=== PATIENT | female | born 1970 | race Caucasian/White ===

== ENCOUNTER 2018-05-14 15:56 | Emergency (ER) | payer MEDICAID ==
[~2018-05-14] VITALS: Ht 147.3 cm; Wt 63.6 kg
[2018-05-14 16:22] VITALS: BP 161/96
--- NOTE | 2018-05-14 17:09 | NUR ---
PT AMBULATED TO BED 9
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
[2018-05-14] MEDS ORDERED: TETRACAINE HCL/PF 0.5% OPTH 4 ML BTL ONE (17:22)
[2018-05-14] MEDS ORDERED: FLUORESCEIN OPTH STRIP 0.6 MG ONE (17:23)
--- NOTE | 2018-05-14 19:06 | NUR ---
REPORT RECIEVED FROM STAN FLORES. ASSUMED CARE OF PT.
--- NOTE | 2018-05-14 19:06 | NUR ---
REPORT GIVEN TO STAN HECK.
[2018-05-14] MEDS: IBUPROFEN 800 MG TAB PO ONE (19:15)
--- NOTE | 2018-05-14 19:54 | NUR ---
Patient discharged with v/s stable. Written and verbal after care instructions given and explained. Patient alert, oriented and verbalized understanding of instructions. Ambulatory with steady gait. All questions addressed prior to discharge. ID band removed. Patient advised to follow up with PMD. Rx of MOTRIN, GENTAMYCIN GTT given. Patient educated on indication of medication including possible reaction and side effects. Opportunity to ask questions provided and answered.
[2018-05-14 19:56] VITALS: BP 154/82
== END 2018-05-14 19:54 | disposition home or self-care (01) ==
LOC: MED 15:56
DX: S05.02XA Injury of conjunctiva and corneal abrasion without foreign body, left eye, initial encounter (principal); E11.9 Type 2 diabetes mellitus without complications; W22.8XXA Striking against or struck by other objects, initial encounter; Y93.89 Activity, other specified; Y92.89 Other specified places as the place of occurrence of the external cause; Y99.8 Other external cause status
CPT/HCPCS: 99283

== ENCOUNTER 2019-01-28 19:47 | Emergency (ER) | payer MEDICAID ==
[~2019-01-28] VITALS: Ht 154.9 cm; Wt 74.4 kg
[2019-01-28 19:54] VITALS: BP 126/64
--- NOTE | 2019-01-28 19:54 | NUR ---
TO BED # 12 AMBULATORY
--- NOTE | 2019-01-28 20:09 | NUR ---
C/O ITCHINESS TO RIGHT SHOULDER/MEDIAL BACK X 3 WEEKS
[2019-01-28] MEDS ORDERED: diphenhydrAMINE 50 MG CAP PO ONE (20:20)
[2019-01-28] MEDS ORDERED: FAMOTIDINE 20 MG TAB PO ONE (20:20)
[2019-01-28 21:12] VITALS: BP 126/64
--- NOTE | 2019-01-28 21:13 | NUR ---
Patient discharged with v/s stable. Written and verbal after care instructions given and explained. Patient alert, oriented and verbalized understanding of instructions. Ambulatory with steady gait. All questions addressed prior to discharge. ID band removed. Patient advised to follow up with PMD. Rx of TRIAMCINOLONE CREAM, BENADRYL, LORATADINE given. Patient educated on indication of medication including possible reaction and side effects. Opportunity to ask questions provided and answered.
== END 2019-01-28 21:13 | disposition home or self-care (01) ==
LOC: MED 19:47
DX: L29.9 Pruritus, unspecified (principal); E11.9 Type 2 diabetes mellitus without complications
CPT/HCPCS: 99283; Q0163

== ENCOUNTER 2019-07-30 19:03 | Emergency (ER) | payer MEDICAID ==
[~2019-07-30] VITALS: Ht 154.9 cm; Wt 73.5 kg
[2019-07-30 19:07] VITALS: BP 134/90
--- NOTE | 2019-07-30 19:10 | NUR ---
TO LOBBY AMBULATORY, A/W BED
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
--- NOTE | 2019-07-30 20:15 | NUR ---
Dr. Dior examining patient.
[2019-07-30] MEDS ORDERED: KETOROLAC 60 MG/2 ML VIAL IM ONE (20:20)
--- NOTE | 2019-07-30 20:36 | NUR ---
MEDICATED WITH 60 MG IM TORADOL FOR 10/10 RIGHT SIDE BODY PAIN. WILL REASSESS IN 30 MINS.
[2019-07-30 20:53] VITALS: BP 128/85
--- NOTE | 2019-07-30 20:53 | NUR ---
Patient discharged with v/s stable. Written and verbal after care instructions given and explained. Patient alert, oriented and verbalized understanding of instructions. Ambulatory with steady gait. All questions addressed prior to discharge. ID band removed. Patient advised to follow up with PMD. Rx of NORCO, MOTRIN given. Patient educated on indication of medication including possible reaction and side effects. Opportunity to ask questions provided and answered.
== END 2019-07-30 20:53 | disposition home or self-care (01) ==
LOC: MED 19:03
DX: S00.11XA Contusion of right eyelid and periocular area, initial encounter (principal); S80.01XA Contusion of right knee, initial encounter; E11.9 Type 2 diabetes mellitus without complications; X58.XXXA Exposure to other specified factors, initial encounter; Y93.89 Activity, other specified; Y92.89 Other specified places as the place of occurrence of the external cause; Y99.8 Other external cause status
CPT/HCPCS: 96372; 99283; J1885

== ENCOUNTER 2019-08-23 17:58 | Emergency (ER) | payer MEDICAID ==
[~2019-08-23] VITALS: Ht 154.9 cm; Wt 68.9 kg
[2019-08-23 18:14] VITALS: BP 145/84
--- NOTE | 2019-08-23 18:26 | NUR ---
patito ma pt as well as
[2019-08-23] MEDS ORDERED: NACL 0.9% 1,000 ML IV ONE (18:30)
[2019-08-23 18:52] LABS: BASOPHILS % (AUTO) 0.4 % (0.0-2.0); EOSINOPHILS # (AUTO) 0.1 K/uL (0-0.4); EOSINOPHILS % (AUTO) 1.8 % (0.0-4.0); HEMATOCRIT 43.5 % (36-48); HEMOGLOBIN 14.6 g/dL (12.0-16.0); LYMPHOCYTES # (AUTO) 1.8 K/uL (2.5-16.5); LYMPHOCYTES % (AUTO) 24.5 % (20.5-51.1); MEAN CORPUSCULAR HEMOGLOBIN 30 pg (27-31); MEAN CORPUSCULAR HGB CONC 34 g/dL (33-37); MEAN CORPUSCULAR VOLUME 89.2 fL (80-94); MONOCYTES # (AUTO) 0.4 K/uL (0.8-1.0); MONOCYTES % (AUTO) 5.8 % (1.7-9.3); NEUTROPHILS # (AUTO) 4.8 K/uL (1.8-7.7); NEUTROPHILS % (AUTO) 67.5 % (42.2-75.2); PLATELET COUNT (AUTO) 232 K/uL (140-450); RED BLOOD CELL COUNT(AUTO) 4.88 MIL/uL (4.20-5.40); RED CELL DISTRIBUTION WIDTH 13.4 % (11.6-13.7); WHITE BLOOD COUNT (AUTO) 7.2 K/uL (4.8-10.8)
--- NOTE | 2019-08-23 18:54 | NUR ---
BIB SELF C/O RIGHT SIDED FACIAL PAIN/DROOPING X1 DAY. YESTERDAY PATIENT WAS AT HOME AND BEGAN FEELING PAIN IN THE BACK OF HER MOUTH WELL FACIAL DROOPINESS. NO NUMBNESS TINGLING REPORTED. PERRLA, 3MM. BILAT FORMULA MAKER STRENGTH 5/5. AOX4. VSS. NO SOB/LABORED BREATHING NOTED. NO ARM DRIFT NOTED. PMH: DM2 NKA
[2019-08-23 19:29] LABS: ALBUMIN 3.8 g/dL (3.4-5.0); ANION GAP 7.9 (8-16); CARBON DIOXIDE 29.8 mmol/L (21-32); CREATININE 0.8 mg/dL (0.6-1.3); POTASSIUM 3.7 mmol/L (3.5-5.1); TOTAL BILIRUBIN 0.3 mg/dL (0.0-1.0)
[2019-08-23 20:26] VITALS: BP 150/85
--- NOTE | 2019-08-23 20:27 | NUR ---
Patient discharged with v/s stable. Written and verbal after care instructions given and explained. Patient alert, oriented and verbalized understanding of instructions. Ambulatory with steady gait. All questions addressed prior to discharge. ID band removed. Patient advised to follow up with PMD. Rx of ACYCLOVIR, MEDROL, PREDNISONE given. Patient educated on indication of medication including possible reaction and side effects. Opportunity to ask questions provided and answered.
== END 2019-08-23 20:27 | disposition home or self-care (01) ==
LOC: MED 17:58
DX: G51.0 Bell's palsy (principal); E11.9 Type 2 diabetes mellitus without complications
CPT/HCPCS: 36415; 80053; 81002; 81025; 82948; 85025; 99283; J7030

== ENCOUNTER 2020-01-30 11:01 | Emergency (ER) | payer MEDICAID ==
[~2020-01-30] VITALS: Ht 147.3 cm; Wt 62.1 kg
[2020-01-30 11:03] VITALS: BP 138/77
--- NOTE | 2020-01-30 11:16 | NUR ---
AMBULATED TO BED 4
--- NOTE | 2020-01-30 11:21 | NUR ---
49 Y/O F C/C HEADACHE X 1 DAY. PER PT TAKEN TYLENOL 800MG THIS MORNING WITH NO RELIEF. PAIN IN FRONTAL AREA, 10/10, SHARP PAIN, NON RADIATING. PER PT FURTHER COMPLAINTS OF BODY ACHES. NEURO ASSESSMENT: CN II,III,IV,V,,VII,VII,XII WNL. NO ASYMMETRY NOTED ON FACE,UPPER/LOWER EXTREMITIES. STRENGTH IN ALL EXTREMITIES 5/5, WNL DORSI/PLANTAR FLEXION. PT NKA. HX DM,HTN. RX METFORMIN, HTN UNABLE TO RECALL. NO NVD. SIDE RAIL X1.
[2020-01-30] MEDS ORDERED: KETOROLAC 60 MG/2 ML VIAL IM ONE (11:30)
[2020-01-30 12:31] VITALS: BP 130/72
--- NOTE | 2020-01-30 12:31 | NUR ---
Patient discharged with v/s stable. Written and verbal after care instructions given and explained. Patient alert, oriented and verbalized understanding of instructions. Ambulatory with steady gait. All questions addressed prior to discharge. ID band removed. Patient advised to follow up with PMD. Rx of MOTRIN,TRAMADOL given. Patient educated on indication of medication including possible reaction and side effects. Opportunity to ask questions provided and answered.
== END 2020-01-30 12:31 | disposition home or self-care (01) ==
LOC: MED 11:01
DX: R51 Headache (principal); I10 Essential (primary) hypertension; E11.9 Type 2 diabetes mellitus without complications
CPT/HCPCS: 96372; 99283; J1885

== ENCOUNTER 2020-06-30 15:43 | Emergency (ER) | payer MEDICAID ==
[~2020-06-30] VITALS: Ht 147.3 cm; Wt 63.6 kg
[2020-06-30 15:57] VITALS: BP 132/99
--- NOTE | 2020-06-30 16:28 | NUR ---
50 Y/O FEMALE COMES FROM HOME, PRESENTS TO ED C/O RIGHT FACE DROOPING AND HEAD ACHE X 3 DAYS. PT STATES SHE HAD SIMILAR SIMPTOMS 8 MONTHS AGO AND RECIVED TREATMENT BUT UNSURE OF DX. DENIES SOB, N,V,D. PT STES SHE TOOK TYLENOL THIS MORNING BUT WAS INEFFECTIVE.FACE IS ASYMETRICAL, RIGHT SIDE FACIAL/SMILE DROOP. PT STES SHE CAN NOT FEEL RIGHT SIDE OF FACE"IT FEELS COMPLETELY NUMB". SYMETRICAL STRENGHTH TO BILAT UPPER AND LOWER EXTREMITIES. NO NEURO DEFFICITS NOTED. PMH: EBE NKDA
[2020-06-30] MEDS ORDERED: NACL 0.9% 1,000 ML IV ONE (16:35)
[2020-06-30 16:59] LABS: BASOPHILS % (AUTO) 0.5 % (0.0-2.0); EOSINOPHILS # (AUTO) 0.1 K/uL (0-0.4); EOSINOPHILS % (AUTO) 1.4 % (0.0-4.0); HEMATOCRIT 42.5 % (36-48); HEMOGLOBIN 14.4 g/dL (12.0-16.0); LYMPHOCYTES # (AUTO) 2.1 K/uL (2.5-16.5); LYMPHOCYTES % (AUTO) 24.2 % (20.5-51.1); MEAN CORPUSCULAR HEMOGLOBIN 29 pg (27-31); MEAN CORPUSCULAR HGB CONC 34 g/dL (33-37); MONOCYTES # (AUTO) 0.6 K/uL (0.8-1.0); MONOCYTES % (AUTO) 6.5 % (1.7-9.3); NEUTROPHILS # (AUTO) 5.9 K/uL (1.8-7.7); NEUTROPHILS % (AUTO) 67.4 % (42.2-75.2); PLATELET COUNT (AUTO) 215 K/uL (140-450); RED BLOOD CELL COUNT(AUTO) 4.89 MIL/uL (4.20-5.40); RED CELL DISTRIBUTION WIDTH 13.6 % (11.6-13.7); WHITE BLOOD COUNT (AUTO) 8.7 K/uL (4.8-10.8)
[2020-06-30 17:18] LABS: ANION GAP 12.3 (8-16); CARBON DIOXIDE 28.6 mmol/L (21-32); CREATININE 0.8 mg/dL (0.6-1.3); POTASSIUM 3.9 mmol/L (3.5-5.1)
[2020-06-30] MEDS ORDERED: INSULIN REGULAR, HUMAN 100 UNIT/ML VIAL IVP ONE (18:10)
--- NOTE | 2020-06-30 18:10 | NUR ---
PT UP TO RESTROOM
--- NOTE | 2020-06-30 18:13 | NUR ---
PT RETURNED FROM RESTROOM, BACK IN BED, POSITIONED FOR COMFORT BED LOCKED IN LOWEST POSITION.
[2020-06-30 18:51] VITALS: BP 147/76
--- NOTE | 2020-06-30 18:52 | NUR ---
Patient discharged with v/s stable. Written and verbal after care instructions given and explained. Patient alert, oriented and verbalized understanding of instructions. Ambulatory with steady gait. All questions addressed prior to discharge. ID band removed. Patient advised to follow up with PMD. Rx of IBUPROFEN, ACYCLOVIR, BION LUBRICANR EYE DROPS given. Patient educated on indication of medication including possible reaction and side effects. Opportunity to ask questions provided and answered.
--- NOTE | 2020-07-01 23:17 | NUR ---
LATE ENTRY- NORMAL SALINE 0.9% DISCONTINUED AT 1755
== END 2020-06-30 18:52 | disposition home or self-care (01) ==
LOC: MED 15:43
DX: G51.0 Bell's palsy (principal); E11.65 Type 2 diabetes mellitus with hyperglycemia; I10 Essential (primary) hypertension
CPT/HCPCS: 36415; 80048; 85025; 96361; 96374; 99283; J1815; J7030

== ENCOUNTER 2020-08-06 12:53 | Emergency (ER) | payer MEDICAID ==
[~2020-08-06] VITALS: Ht 149.9 cm; Wt 62.6 kg
[2020-08-06 13:51] VITALS: BP 146/63
--- NOTE | 2020-08-06 13:55 | NUR ---
PT SENT TO ER LOBBY TO WAIT FOR MSE.
--- NOTE | 2020-08-06 14:00 | NUR ---
50/F presents to ED with complaints of right sided facial numbness, droop since the beginning this year. Pt has had another episode prior to this. Patient has complaints of right sided droop and headache. Pt states she was seen a year ago and was given rx that helped her a lot but last visit she did not improve with what was prescribed to her.
--- NOTE | 2020-08-06 14:13 | NUR ---
EVALUATION BEING PERFORMED BY TRU YAO IN TRIAGE.
[2020-08-06 14:39] VITALS: BP 145/50
--- NOTE | 2020-08-06 14:39 | NUR ---
Patient discharged with v/s stable. Written and verbal after care instructions given and explained. Patient verbalized understanding. Ambulatory with steady gait. All questions addressed prior to discharge. Advised to follow up with PMD.
== END 2020-08-06 14:39 | disposition home or self-care (01) ==
LOC: MED 12:53
DX: G51.0 Bell's palsy (principal); E11.9 Type 2 diabetes mellitus without complications; I10 Essential (primary) hypertension
CPT/HCPCS: 99281

== ENCOUNTER 2021-03-09 20:36 | Emergency (ER) | payer MEDICAID ==
[~2021-03-09] VITALS: Ht 149.9 cm; Wt 64.4 kg
[2021-03-09 20:47] VITALS: BP 141/66
--- NOTE | 2021-03-09 21:25 | NUR ---
PT. IS A 50 Y/O FEMALE THAT CAME INTO ED WITH C/O OF BILATERAL FOOT PAIN. PT. STATES IT STARTED 3 DAYS AGO AND [facility] ASKED TO DESCRIBE PAIN, PT. STATES "FEELS PRICKLY AND TINGLY ON TOES." PT. RATES PAIN 10/10 ON THE PAIN SCALE AT THIS TIME. DENIES N/V/D; SKIN IS PINK/WARM/DRY; AAOX4 WITH EVEN AND STEADY GAIT; HR EVEN AND REGULAR; PT DENIES ANY FEVER, CP, SOB, OR COUGH AT THIS TIME; VSS; PATIENT POSITIONED FOR COMFORT; HOB ELEVATED; BEDRAILS UP X2; BED DOWN. ER MD MADE AWARE OF PT STATUS. PMH: DIABETES ALLERGIES: NKA
--- NOTE | 2021-03-09 21:25 | NUR ---
AMBULATED TO BED 10 WITH EVEN AND STEADY GAIT
--- NOTE | 2021-03-09 22:45 | NUR ---
PT. LAYING COMFORTABLY IN BED WITH DAUGHTER AT BEDSIDE. VOICES NO COMPLAINTS AT THIS TIME. AWAITING DISPOSITON
--- NOTE | 2021-03-09 23:13 | NUR ---
Dr. Dior examining patient.
[2021-03-09] MEDS ORDERED: KETOROLAC 60 MG/2 ML VIAL IM ONE (23:15)
[2021-03-09] MEDS ORDERED: CEPH500C16 PO (23:21)
[2021-03-09] MEDS ORDERED: IBUP-2213 PO (23:21)
[2021-03-09 23:48] VITALS: BP 138/60
--- NOTE | 2021-03-09 23:48 | NUR ---
Patient discharged with v/s stable. Written and verbal after care instructions given and explained. Patient alert, oriented and verbalized understanding of instructions. Ambulatory with steady gait. All questions addressed prior to discharge. ID band removed. Patient advised to follow up with PMD. Rx of KEFLEX AND IBUPROFEN given. Patient educated on indication of medication including possible reaction and side effects. Opportunity to ask questions provided and answered.
== END 2021-03-09 23:48 | disposition home or self-care (01) ==
LOC: MED 20:36
DX: S90.822A Blister (nonthermal), left foot, initial encounter (principal); X58.XXXA Exposure to other specified factors, initial encounter; Y93.89 Activity, other specified; Y92.89 Other specified places as the place of occurrence of the external cause; Y99.8 Other external cause status
CPT/HCPCS: 96372; 99283; J1885

== ENCOUNTER 2021-06-03 13:59 | Emergency (ER) | payer MEDICAID ==
[~2021-06-03] VITALS: Ht 144.8 cm; Wt 63.0 kg
[~2021-06-03 13:59] MED LIST: CEPH500C16 PO; IBUP-2213 PO
[2021-06-03 14:15] VITALS: BP 128/90
--- NOTE | 2021-06-03 14:22 | NUR ---
PT SENT TO LOBBY
[2021-06-03] MEDS ORDERED: KETOROLAC 60 MG/2 ML VIAL IM ONE (15:05)
[2021-06-03] MEDS ORDERED: NAPR-54 PO (15:13)
--- NOTE | 2021-06-03 15:21 | NUR ---
51 Y/O FEMALE BIB SELF WITH C/O LEFT SIDED NECK PAIN AND SHOULDER PAIN X3 DAYS. DENIES INJURY OR TRAUMA. PT REPORTS 10/10 PAIN, WORSE WITH MOVEMENT. NO MASS NOTED. PT DENIES SOB/VELAZQUEZ. PT A/O X4 WITH EVEN AND UNLABORED RESPIRATIONS. MEDHX: DENIES ALLERGIES: DENIES
--- NOTE | 2021-06-03 15:44 | NUR ---
Patient discharged with v/s stable. Written and verbal after care instructions ABOUT TRIGGER POINT INJECTION AND MUSCLE PAIN given and explained. Patient alert, oriented and verbalized understanding of instructions. Ambulatory with steady gait. All questions addressed prior to discharge. ID band removed. Patient advised to follow up with PMD. Rx of NAPROXEN given. Patient educated on indication of medication including possible reaction and side effects. Opportunity to ask questions provided and answered.
== END 2021-06-03 15:44 | disposition home or self-care (01) ==
LOC: MED 13:59
DX: M79.18 Myalgia, other site (principal); E11.9 Type 2 diabetes mellitus without complications; I10 Essential (primary) hypertension; Z79.2 Long term (current) use of antibiotics; Z79.1 Long term (current) use of non-steroidal anti-inflammatories (NSAID)
CPT/HCPCS: 96372; 99284; J1885

== ENCOUNTER 2022-05-25 11:41 | Emergency (ER) | payer MEDICAID, OTHER ==
[~2022-05-25] VITALS: Ht 147.3 cm; Wt 64.0 kg
[~2022-05-25 11:41] MED LIST changes: +NAPR-54 PO
[2022-05-25 11:50] VITALS: BP 167/85
--- NOTE | 2022-05-25 12:24 | NUR ---
52/F presents to ED with complaints of bilateral foot itching x3 days. Pt states she was seen here a year ago for the same symptoms and they gave her an injection, she does not know what it was but she states it helped her. Pt denies any rash. Denies any injury.
[2022-05-25] MEDS ORDERED: KETOROLAC 30 MG/ML VIAL IM ONE (12:30)
[2022-05-25] MEDS ORDERED: NAPR-54 PO ×2 (12:41→13:07)
--- NOTE | 2022-05-25 12:49 | NUR ---
Patient discharged with v/s stable. Written and verbal after care instructions given and explained. Patient alert, oriented and verbalized understanding of instructions. Ambulatory with steady gait. All questions addressed prior to discharge. ID band removed. Patient advised to follow up with PMD. Rx of Naproxen 500mg given. Patient educated on indication of medication including possible reaction and side effects. Opportunity to ask questions provided and answered.
== END 2022-05-25 12:49 | disposition home or self-care (01) ==
LOC: MED 11:41
DX: M72.2 Plantar fascial fibromatosis (principal); E11.9 Type 2 diabetes mellitus without complications; I10 Essential (primary) hypertension; Z79.899 Other long term (current) drug therapy
CPT/HCPCS: 96372; 99283; J1885